=== PATIENT | female | born 1990 | race Caucasian/White ===

== ENCOUNTER 2016-12-22 08:50 | Emergency (ER) | payer MEDICAID ==
[~2016-12-22] VITALS: Ht 170.2 cm; Wt 60.0 kg
[~2016-12-22 08:50] MED LIST: ERYT1O LEFT EYE
[2016-12-22 08:52] VITALS: BP 165/80; PULSE 111; RESP 24; TEMP 98.4; O2SAT 100
[2016-12-22] MEDS ORDERED: ALPR1TAB3 PO (09:01)
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
[2016-12-22 11:01] VITALS: BP 99/60; PULSE 61; RESP 17; O2SAT 100
== END 2016-12-22 18:55 | disposition home or self-care (01) ==
LOC: NEPD 08:50 → NEPJ 18:55
DX: F32.9 Major depressive disorder, single episode, unspecified (principal); F41.9 Anxiety disorder, unspecified
CPT/HCPCS: 99283